=== PATIENT | male | born 1990 | race Asian ===

== ENCOUNTER 2017-06-25 11:57 | Outpatient (CLI) | payer OTHER | END 2017-06-26 01:09 | disposition short-term general hospital (02) | LOC: AMB 11:57 | DX: S09.90XA Unspecified injury of head, initial encounter (principal); S82.251B Displaced comminuted fracture of shaft of right tibia, initial encounter for open fracture type I or II; V86.95XA Unspecified occupant of 3- or 4- wheeled all-terrain vehicle (ATV) injured in nontraffic accident, initial encounter | CPT/HCPCS: A0425; A0429 ==

== ENCOUNTER 2017-06-25 19:57 | Outpatient (CLI) | payer OTHER | END 2017-06-25 20:07 | disposition short-term general hospital (02) | LOC: AMB 19:57 | DX: M21.861 Other specified acquired deformities of right lower leg (principal); S81.831A Puncture wound without foreign body, right lower leg, initial encounter; R51 Headache; V86.95XA Unspecified occupant of 3- or 4- wheeled all-terrain vehicle (ATV) injured in nontraffic accident, initial encounter | CPT/HCPCS: A0425; A0427 ==

== ENCOUNTER 2017-06-25 20:17 | Emergency (ER) | payer OTHER ==
[~2017-06-25] VITALS: Ht 170.2 cm; Wt 86.2 kg
[2017-06-25 22:43] LABS: PLATELET COUNT 161 K/uL (142-355)
[2017-06-25 23:42] VITALS: BP 120/68; TEMP 98.6
[2017-06-26 00:09] LABS: POTASSIUM 4.1 mmol/L (3.6-5.2); SODIUM 139 mmol/L (136-145)
[2017-06-26 20:52] LABS: POTASSIUM 4.1 mmol/L (3.6-5.2); SODIUM 137 mmol/L (136-145)
== END 2017-06-25 23:55 | disposition short-term general hospital (02) ==
LOC: ED 20:17
PROVIDERS: Specialist
PROC: 0T9B70Z Drainage of Bladder with Drainage Device, Via Natural or Artificial Opening (ICD-10-PCS; principal; 2017-06-25)
DX: S09.90XA Unspecified injury of head, initial encounter (principal); S82.251B Displaced comminuted fracture of shaft of right tibia, initial encounter for open fracture type I or II; V86.95XA Unspecified occupant of 3- or 4- wheeled all-terrain vehicle (ATV) injured in nontraffic accident, initial encounter
CPT/HCPCS: 36415; 51702; 80048; 80053; 80307; 81000; 85027; 96365; 96375; 96376; 99285; G0479; J1170; J2270; J2405